=== PATIENT | female | born 1980 | race Caucasian/White ===

== ENCOUNTER 2017-01-11 06:22 | Day surgery (SDC) | payer BC ==
[2017-01-11] MEDS ORDERED: Lactated Ringers 1,000 ML IV SCH (06:30)
--- NOTE | 2017-01-11 06:52 | PCM.PREANE ---
Preanesthetic Assessment - ANESTHESIA/TRANSFUSION/FAMILY HX Anesthesia/Transfusion History: Prior Anesthesia Type of Anesthesia Reaction: Denies: Allergy, Anesthesia Awareness, Excessive Somnolence, Excessive Nausea/Vomiting, Excessive Itching, Excessive Shivering, Malignant Hyperthermia, Malignant Hyperthermia, Family History, Pseudocholinesterase Deficiency, Pseudocholinesterase Deficiency, Family History of, Urinary Retention, Unknown, Other (see below) Other Type of Anesthesia Reaction Comment: pt states she wakes up angry Family History of Anesthesia Reaction: No Intubation History: Unknown - REVIEW OF SYSTEMS Constitutional: Reports: no symptoms 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 Respiratory: Reports: no symptoms Cardiovascular: Reports: no symptoms GI: Reports: no symptoms Other: Reports: none - PHYSICAL ASSESSMENT O2 Sat by Pulse Oximetry: 99 RR: 16 Vital Signs: Last Vital Signs Temp 37 C 01/11/17 06:43 Pulse 86 01/11/17 06:43 Resp 16 01/11/17 06:43 BP 106/76 01/11/17 06:43 Pulse Ox 99 01/11/17 06:43 Height: 1.73 m Weight: 71.668 kg ASA Class: 2 Mental Status: alert & oriented x3 Airway Class: Mallampati = 2 Dentition: Reports: normal dentition Thyro-Mental Finger Breadths: 3 Mouth Opening Finger Breadths: 3 ROM/Head Extension: full Respiratory Status: lungs clear to auscultation bilaterally Cardiovascular Status: regular rate & rhythm, normal S1, S2, no murmur, blood pressure WNL - LAB Values: Laboratory Last Values WBC 10.38 K/uL (4.0-11.0) 01/11/17 06:40 RBC 5.00 M/uL (4.30-5.90) 01/11/17 06:40 Hgb 14.7 g/dL (12.0-16.0) 01/11/17 06:40 Hct 44.3 % (36.0-46.0) 01/11/17 06:40 MCV 88.6 fL (80.0-98.0) 01/11/17 06:40 MCH 29.4 pg (27.0-32.0) 01/11/17 06:40 MCHC 33.2 g/dL (31.0-37.0) 01/11/17 06:40 RDW Std Deviation 42.9 fl (28.0-62.0) 01/11/17 06:40 RDW Coeff of Antonio 13 % (11.0-15.0) 01/11/17 06:40 Plt Count 281 K/uL (150-400) 01/11/17 06:40 MPV 9.30 fL (7.40-12.00) 01/11/17 06:40 Nucleated RBC % 0.0 /100WBC 01/11/17 06:40 Nucleated RBCs # 0 K/uL 01/11/17 06:40 - ALLERGIES Allergies/Adverse Reactions: Allergies Allergy/AdvReac Type Severity Reaction Status Date / Time No Known Allergies Allergy Verified 01/05/17 14:27 - BLOOD Blood Available: No - ANESTHESIA PLAN Preop [place]: No Anesthesia Type Planned: MAC (general anesthesia back-up) - ACKNOWLEDGEMENTS Pt an appropriate candidate for the planned anesthesia: Yes Alternatives and risks of anesthesia discussed w pt/guardian: Yes Pt/Guardian understands and agree with anesthesia plan: Yes PreAnesthesia Questionnaire HEENT History: Reports: Other (see below) Other HEENT History: wears contacts Genitourinary History: Reports: None 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: , 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 Neurological History: Reports: Headaches, chronic Psychiatric History: Reports: Anxiety, Depression - Past Surgical History Head Surgeries/Procedures: Reports: None HEENT Surgical History: Reports: Oral surgery Female Surgical History: Reports: D&C - SUBSTANCE USE Smoking Status *Q: Former Smoker (quit 5 years ago) Tobacco Use Within Last Twelve Months: No Recreational Drug Use History: No - HOME MEDS Home Medications: Home Meds Desogestrel-Ethinyl Estradiol [Apri 28 Day Tablet] 1 tab PO ASDIRECTED 01/05/17 [History] - CURRENT (IN HOUSE) MEDS Current Meds: Current Medications Lactated Ringer's (Ringers, Lactated) 1,000 mls @ 125 mls/hr IV ASDIRECTED RIGOBERTO
[2017-01-11] MEDS ORDERED: fentaNYL 100 MCG/2 ML SDV ONE (07:19)
[2017-01-11] MEDS ORDERED: Ondansetron 4 MG/2 ML SDV ONE (07:19)
[2017-01-11] MEDS ORDERED: Propofol 200 MG/20 ML SDV ONE (07:19)
[2017-01-11] MEDS ORDERED: Lidocaine 2% 5 ML SDV ONE (07:19)
[2017-01-11] MEDS ORDERED: Midazolam 1 MG/ML 2 ML SDV ONE (07:19)
[2017-01-11] MEDS ORDERED: diphenhydrAMINE 50 MG/ML SDV ONE (07:58)
[2017-01-11] MEDS ORDERED: Dexamethasone 4 MG/ML 5 ML MDV ONE (07:58)
[2017-01-11] MEDS ORDERED: Ketorolac 30 MG/ML SDV ONE (08:07)
[2017-01-11] MEDS ORDERED: fentaNYL 100 MCG/2 ML SDV IVPUSH PRN (08:08)
--- NOTE | 2017-01-11 08:57 | PCM.POSTAN ---
POST ANESTHESIA ASSESSMENT - MENTAL STATUS Mental Status: alert, oriented - RESPIRATORY Respiratory Status: respiratory rate WNL, airway patent, O2 saturation stable - CARDIOVASCULAR CV Status: pulse rate WNL, blood pressure stable - GASTROINTESTINAL GI Status: no symptoms - PAIN Pain Score: 0 - POST OP HYDRATION Hydration Status: adequate & stable - OBSERVATIONS Free Text/Narrative:: Pt stable for discharge to phase II recovery
--- NOTE | 2017-01-11 09:10 | PCM.OPNOTE ---
- General Post-Op/Procedure Note Date of Surgery/Procedure: 01/11/17 Operative Procedure(s): Removal of cervical polyp with broad base. Cauterization of ectropion Findings: 6mm broad base cervical polyp with large ectropion Pre Op Diagnosis: Cervical polyp. Large cervical ectropion Post-Op Diagnosis: Same. Sessile cervical polyp removed Anesthesia Technique: General LMA Primary Surgeon: Felicitas Michelle Anesthesia Provider: Gerard Breaux Pathology: Cervical polyp EBL in mLs: 5 Complications: None known Condition: Good Free Text/Narrative:: Intake & Output 01/10/17 01/11/17 01/11/17 22:59 06:59 14:59 Intake Total 1350 Balance 1350 JobID#[id number]
[2017-01-11 10:33] VITALS: BP 102/65
--- NOTE | 2017-01-19 19:16 | OR ---
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 The patient does have a history significant for all normal Pap smears and most recent, approximately 2 years earlier, showed a normal Pap with negative high-risk HPV, putting the patient at a five year interval surveillance at that time. Of note, during patient's annual exam and just visualizing the cervix, the cervix appeared large, with a large ectropion and a broad based what appears sessile cervical polyps, second to the large ectropion and appearance of a friable cervix. Patient did undergo cervical biopsy had a repeat Pap smear. Cervical biopsy was only significant for cervical polyp. After explaining to the patient that the cervical polyp was benign, but could cause problems in future as far as bleeding postcoital bleeding and just allowing the patient to realize that the cervical polyp was not harmful otherwise. Knowing all of the above and that there was no concern with cervical polyp, the patient did desire cervical polyp to be removed. The patient was apprised of risk of polyp removal being bleeding, infection, poor wound, healing, possible damage to the bowel, the bladder, ureters, nerves, blood vessels or any other adjacent structures in the pelvis. The patient was also apprised of the fact that with any uncontrolled bleeding, possible remote chance of hysterectomy as well as other complications. Knowing all the above with the risk of anesthesia and increased risk of thromboembolic disease, the patient did consent to cervical polypectomy. PREOPERATIVE DIAGNOSES: 1. Cervical polyp. 2. Large cervical ectropion. POSTOPERATIVE DIAGNOSES: 1. Cervical polyp. 2. Large cervical ectropion with sessile cervical polyp removed. PROCEDURE PERFORMED: 1. Removal of cervical polyp with broad base. 2. Cauterization of ectropion second to the friable nature as it bled significantly. ANESTHESIA: General with LMA as the patient did not tolerate the cervical biopsy in the office. ESTIMATED BLOOD LOSS: Less than 5 mL. FLUIDS: For fluids in the OR, please see official anesthesia report. FINDINGS: On speculum exam, were approximately 6 mm broad based cervical polyp with large cervical ectropion that was apparently friable. COMPLICATIONS: None known. TO PATHOLOGY: Cervical polyp. CONDITION AFTER PROCEDURE: Good. DESCRIPTION OF PROCEDURE: The patient was met in the preop holding area and transferred back to the operating room. The patient was then transferred to her OR bed. The patient then with Venodyne's in place and active, the patient then underwent general anesthesia with LMA. The patient was then placed in the dorsal lithotomy position in the [facility]. The patient then underwent cleansing and had her bladder drained. After being prepped in a normal sterile fashion, the patient was then draped. A time-out was held to ensure the appropriate patient, appropriate position and appropriate procedure. After time-out was held, an open-sided coated Graves speculum was then introduced into the patient's vagina, visualizing the large ectropion and the approximately 6 mm cervical polyp with the broad base and was also noted that patient large ectropion that was somewhat friable. The polyp forceps were used to grasp the polyp and then towards the polyp on the stalk second to the base being broad. There was some bleeding noted from base. Smaller more insignificant polyps were removed afterwards second to the friable nature of the ectropion. A LEEP loop was used to cauterize off the smaller remaining polyps and to bring the friable ectropion to a more hemostatic state. After a sliver of cervical tissue had been removed from the ectropion hemostasis was much improved. Silver nitrate sticks were used on the not so hemostatic areas. Afterwards, hemostasis was excellent. The instruments were removed from the patient's vagina. The patient was cleansed and the bed was returned to functioning status and the patient was taken down out of the [facility]. The patient then was transferred to her recovery bed and then taken to the PACU in awake and stable condition. Sponge lap, needle, and instrument counts were correct. The patient tolerated the procedure well. ISABELA / MARTY /[id number] LOBO
== END 2017-01-11 10:22 | disposition home or self-care (01) ==
LOC: MW.SDS 06:22
PROVIDERS: ATTEND Obstetrics & Gynecology
DX: N84.1 Polyp of cervix uteri (principal); N72 Inflammatory disease of cervix uteri; F41.8 Other specified anxiety disorders; Z98.890 Other specified postprocedural states; Z79.899 Other long term (current) drug therapy; Z87.891 Personal history of nicotine dependence
CPT/HCPCS: 36415; 57500; 84703; 85027; 88305; J1100; J1200; J1885; J2250; J2405; J3010; J7120; 00940; J2704

== ENCOUNTER 2025-10-04 08:21 | Day surgery (SDC) | payer BC ==
[~2025-10-04 08:21] MED LIST: propofoL 500 MG/50 ML 50 ML ONE
[2025-10-04] MEDS: Lactated Ringers 1,000 ML IV SCH (08:51)
[2025-10-04] MEDS ORDERED: Propofol 200 MG/20 ML SDV ONE (09:45)
[2025-10-04] MEDS ORDERED: Lactated Ringers 1,000 ML IV SCH (10:00)
[2025-10-04 12:38] VITALS: BP 98/60; PULSE 75
== END 2025-10-04 10:40 | disposition home or self-care (01) ==
LOC: MW.SDS 08:21
PROVIDERS: ATTEND Surgery
DX: K29.00 Acute gastritis without bleeding (principal); K29.50 Unspecified chronic gastritis without bleeding; K44.9 Diaphragmatic hernia without obstruction or gangrene; K21.00 Gastro-esophageal reflux disease with esophagitis, without bleeding; Z87.891 Personal history of nicotine dependence; Z79.899 Other long term (current) drug therapy
CPT/HCPCS: 00731; J2704; J7120